=== PATIENT | female | born 1955 | race Caucasian/White ===

== ENCOUNTER 2019-07-01 11:52 | Emergency (ER) | payer SELFPAY ==
[~2019-07-01] VITALS: Ht 165.1 cm; Wt 65.9 kg
[2019-07-01 12:15] VITALS: Ht 165.1 cm; Wt 65.9 kg
[2019-07-01 13:07] LABS: APPEARANCE CLOUDY (CLEAR); BILIRUBIN NEGATIVE (NEGATIVE); COLOR YELLOW (YELLOW); GLUCOSE NEGATIVE (NEGATIVE); KETONE NEGATIVE (NEGATIVE); NITRITE POSITIVE (NEGATIVE); PROTEIN NEGATIVE (NEGATIVE); SPECIFIC GRAVITY 1.015 (1.005-1.020); UROBILINOGEN NORMAL (NORMAL)
[2019-07-01 13:08] LABS: BACTERIA MANY /hpf (NEGATIVE); EPITHELIAL CELLS 0-5 /hpf (0-5); RED CELLS - URINE OCC /hpf (0-5)
[2019-07-01 14:00] LABS: BASOPHILS 0.1 % (0-2); EOSINOPHILS 0.4 % (0-7); HEMATOCRIT 38.8 % (36.0-48.0); HEMOGLOBIN 12.4 g/dL (12-16); IMMATURE GRANULOCYTES 0.3 % (0-5); LYMPHOCYTES 14.9 % (15-50); MCH 27.5 pg (26.0-34.0); MEAN PLATELET VOLUME 8.9 fL (7.4-10.4); MONOCYTES 9.3 % (2-11); PLATELET COUNT 278 10x3/uL (130-400); RBC 4.51 10x6/uL (4.00-5.40); WBC 11.6 10x3/uL (4.8-10.8)
[2019-07-01 14:13] LABS: ANION GAP 12.5 mmol/L (8-16); BILIRUBIN - TOTAL 0.21 mg/dL (0.2-1.3); CALCIUM 8.9 mg/dL (8.5-10.1); CARBON DIOXIDE 28.7 mmol/L (21.0-32.0); CREATININE - SERUM 0.9 mg/dL (0.6-1.3); POTASSIUM - SERUM 4.2 mmol/L (3.5-5.1); PROTEIN - SERUM 7.3 g/dL (6.4-8.2)
[2019-07-01] MEDS ORDERED: FLAGYL500 MG PO (15:33)
[2019-07-01] MEDS ORDERED: LEVAQUIN750 MG PO (15:33)
[2019-07-01] MEDS ORDERED: FLORAJEN3 CAPS460 MG PO (15:39)
[2019-07-01] MEDS ORDERED: ZOFRAN ODT4 MG/UDTAB PO (15:39)
[2019-07-01] MEDS ORDERED: VOLTAREN75 MG PO (15:39)
[2019-07-01 16:11] VITALS: BP 136/62
== END 2019-07-01 16:21 | disposition home or self-care (01) ==
LOC: D.ER 11:52
PROVIDERS: Family Medicine
DX: N39.0 Urinary tract infection, site not specified (principal); K52.9 Noninfective gastroenteritis and colitis, unspecified